=== PATIENT | female | born 1950 | race Caucasian/White ===

== ENCOUNTER 2020-06-30 09:58 | Day surgery (SDC) | payer MEDICARE, BC ==
[~2020-06-30] VITALS: Ht 157.5 cm; Wt 56.1 kg
[~2020-06-30 09:58] MED LIST: ASPI81TA45 PO; BUPIVACAINE/PF 0.5% ONE; DEXL60CA2 PO; EPINEPHRINE 1 MG/ML, 1ML ONE; FAMO20TA7 PO; FISH OIL PO; FLUO20CA19 PO; SIMV40TA20 PO; VITAMIN SUPPLEMENT PO
[2020-06-30 10:38] VITALS: BP 141/83
[2020-06-30] MEDS ORDERED: CHLORHEXIDINE 15 ML UDC MM ONE (11:00)
[2020-06-30] MEDS ORDERED: LACTATED RINGERS 1,000 ML IV SCH ×2 (11:00→13:30)
[2020-06-30] MEDS ORDERED: ROCURONIUM 10MG/ML,5ML ONE (12:10)
[2020-06-30] MEDS ORDERED: DEXAMETHASONE 4 MG/ML, 1ML ONE (12:10)
[2020-06-30] MEDS ORDERED: GLYCOPYRROLATE 0.2MG/1ML, 5ML ONE (12:10)
[2020-06-30] MEDS ORDERED: SUCCINYLCHOLINE 20 MG/ML, 10ML ONE (12:10)
[2020-06-30] MEDS ORDERED: CEFAZOLIN 1,000 MG ONE (12:10)
[2020-06-30] MEDS ORDERED: ONDANSETRON 2MG/ML, 2ML ONE (12:10)
[2020-06-30] MEDS ORDERED: FENTANYL PF 250 MCG/5ML ONE (12:10)
[2020-06-30] MEDS ORDERED: PROPOFOL 10 MG/ML, 20ML ONE (12:10)
[2020-06-30] MEDS ORDERED: NEOSTIGMINE 1 MG/ML, 10ML ONE (12:10)
[2020-06-30] MEDS ORDERED: BUPIVACAINE/PF-EPI 0.5% 1:200K INFIL ONE (12:32)
[2020-06-30] MEDS ORDERED: PROMETHAZINE 25 MG/ML, 1ML IVPush PRN (13:00)
[2020-06-30] MEDS ORDERED: ACETAMINOPHEN 325 MG TABLET PO PRN (13:00)
[2020-06-30] MEDS ORDERED: LABETALOL 5MG/ML, 20ML IV PRN (13:00)
[2020-06-30] MEDS ORDERED: HYDROmorphone 1 MG/ML, 1ML INJ IVPush PRN (13:00)
[2020-06-30] MEDS ORDERED: METHOCARBAMOL 1,000 MG in DEXTROSE 5% 100 ML IV PRN (13:00)
[2020-06-30] MEDS ORDERED: ONDANSETRON 2MG/ML, 2ML IVPush PRN ×2 (13:00→13:30)
[2020-06-30] MEDS ORDERED: LORazepam 2 MG/ML, 1ML IVPush PRN (13:00)
[2020-06-30] MEDS ORDERED: PROMETHAZINE 25 MG SUPP PR PRN (13:00)
[2020-06-30] MEDS ORDERED: hydrALAzine 20 MG/ML, 1ML IV PRN (13:00)
[2020-06-30] MEDS ORDERED: SUGAMMADEX 200 MG/2 ML IVPush ONE (13:07)
[2020-06-30] MEDS ORDERED: morphine SULFATE 10 MG/ML, 1ML IVPush PRN (13:30)
[2020-06-30] MEDS: FENTANYL PF 100 MCG/2ML IV PRN ×2 (13:30→13:45)
[2020-06-30] MEDS ORDERED: FENTANYL PF 100 MCG/2ML ONE (13:30)
[2020-06-30] MEDS ORDERED: OXYcodone 5 MG/5 ML ORAL.SOL UDC ONE (13:30)
[2020-06-30] MEDS ORDERED: HYDROcodone/APAP 5/325 TABLET PO PRN (13:30)
[2020-06-30] MEDS ORDERED: HYDROcodone/APAP 7.5-325MG/15ML UDC PO PRN (13:30)
[2020-06-30] MEDS: OXYcodone 5 MG/5 ML ORAL.SOL UDC PO PRN ×2 (13:30→14:44)
[2020-06-30] MEDS ORDERED: ACETAMINOPHEN 650 MG/20.3 ML UDC ONE (13:49)
[2020-06-30] MEDS ORDERED: METHOCARBAMOL 1,000 MG in DEXTROSE 5% 100 ML IV ONE (14:00)
[2020-06-30] MEDS ORDERED: HYDROmorphone 1 MG/ML, 1ML INJ ONE (14:07)
== END 2020-06-30 15:50 | disposition home or self-care (01) ==
LOC: OUT 09:58
PROVIDERS: ATTEND Thoracic Surgery (Cardiothoracic Vascular Surgery)
DX: K44.9 Diaphragmatic hernia without obstruction or gangrene (principal); Z20.828 Contact with and (suspected) exposure to other viral communicable diseases; K22.70 Barrett's esophagus without dysplasia; K21.9 Gastro-esophageal reflux disease without esophagitis; Z88.2 Allergy status to sulfonamides
CPT/HCPCS: 43280; 87635; 93005; J0330; J0690; J1100; J1170; J2405; J2704; J2710; J2800; J3010; J7120; J0171